=== PATIENT | male | born 1960 | race American Indian/Alaskan Native ===

== ENCOUNTER 2017-07-22 22:42 | Emergency (ER) | payer MEDICAID ==
--- NOTE | 2017-07-22 23:08 | C.PDOC ---
History Of Present Illness <JackiemashaCarin garnica - Last Filed: 07/22/17 23:25> <Demetris Cruz - Last Filed: 07/23/17 06:12> 56yo male, brought to ED by EMS for public intoxication. Patient admits to alcohol use today; patient following commands. He has no somatic complaints. ( Carin Vasquez) History Per: Patient, EMS Modifying Factor(s): Alcohol <JackiemashaZeynep garnicareal Krause - Last Filed: 07/22/17 23:25> <Demetris Cruz - Last Filed: 07/23/17 06:12> Time Seen by Provider: 07/22/17 22:45 Chief Complaint (Nursing): Substance Abuse Past Medical History Reviewed: Historical Data, Nursing Documentation, Vital Signs - Social History Hx Alcohol Use: No (DENIES) Hx Substance Use: No (DENIES) - Immunization History Hx Tetanus Toxoid Vaccination: No Hx Influenza Vaccination: No Hx Pneumococcal Vaccination: No <JackiemashaCarin garnica - Last Filed: 07/22/17 23:25> Family History: States: No Known Family Hx <AnthonyMarco ADemetris - Last Filed: 07/23/17 06:12> Vital Signs: Last Vital Signs Temp 98.5 F 07/23/17 04:50 Pulse 81 07/23/17 04:50 Resp 16 07/23/17 04:50 BP 130/82 07/23/17 04:50 Pulse Ox 96 07/23/17 04:50 Review Of Systems Except As Marked, All Systems Reviewed And Found Negative. Review Of Systems: ROS cannot be obtained secondary to pt's inabilty to answer questions. (limited by intoxication) Cardiovascular: Negative for: Chest Pain Respiratory: Negative for: Shortness of Breath Gastrointestinal: Negative for: Vomiting Neurological: Negative for: Headache Psych: Positive for: Other (alcohol use) <JackieleninElvaCarin Jimi - Last Filed: 07/22/17 23:25> Physical Exam - Physical Exam Appears: No Acute Distress, Other (arousable to verbal stimuli) Skin: Normal Color Head: Atraumatic, Normacephalic, No Swelling, No Abrasion, No Laceration Eye(s): bilateral: Normal Inspection, PERRL, EOMI Oral Mucosa: Moist Neck: Supple Cardiovascular: Rhythm Regular Respiratory: Normal Breath Sounds Gastrointestinal/Abdominal: Soft, No Tenderness Extremity: Normal ROM (able to move all extremities x 4 on command) Neurological/Psych: Other (lethargic but arousable) <Carin Vasquez - Last Filed: 07/22/17 23:25> ED Course And Treatment O2 Sat by Pulse Oximetry: 96 (RA) <Carin Vasquez - Last Filed: 07/22/17 23:25> Progress Note: awake and stable for discharge Reevaluation Time: 06:00 Reassessment Condition: Improved <Demetris Cruz - Last Filed: 07/23/17 06:12> Medical Decision Making <Carin Vasquez - Last Filed: 07/22/17 23:25> <Demetris Cruz - Last Filed: 07/23/17 06:12> Medical Decision Making: Monitor for sobriety (Carin Vasquez) Time: 2350 Patient signed out to me pending clinical sobriety. (Demetris Cruz) Disposition <Carin Vasquez - Last Filed: 07/22/17 23:25> - Disposition Disposition Time: 06:15 <Demetris Cruz - Last Filed: 07/23/17 06:12> - Disposition Disposition: HOME/ ROUTINE Condition: IMPROVED Forms: [facility] (Bhutanese) - Clinical Impression Clinical Impression: Alcoholism, Alcohol intoxication - Scribe Statement The provider has reviewed the documentation as recorded by the Scribe <Carin Vasquez - Last Filed: 07/22/17 23:25> <Demetris Cruz - Last Filed: 07/23/17 06:12> - Scribe Statement Sonia Duncan (Carin Vasquez) Provider Attestation: All medical record entries made by the Scribe were at my direction and personally dictated by me. I have reviewed the chart and agree that the record accurately reflects my personal performance of the history, physical exam, medical decision making, and the department course for this patient. I have also personally directed, reviewed, and agree with the discharge instructions and disposition. (Carin Vasquez)
[2017-07-23 04:51] VITALS: BP 130/82; PULSE 81; RESP 16; TEMP 98.5; O2SAT 96
== END 2017-07-23 06:25 | disposition home or self-care (01) ==
LOC: C.ER 22:42
DX: F10.129 Alcohol abuse with intoxication, unspecified (principal); Y90.9 Presence of alcohol in blood, level not specified